=== PATIENT | female | born 1935 | race Caucasian/White ===

== ENCOUNTER 2021-11-23 09:30 | Emergency (ER) | payer MEDICARE, SELFPAY ==
[2021-11-23 10:00] VITALS: BP 159/84; PULSE 89; RESP 16; TEMP 36.9; O2SAT 99; BMI 17.6
--- NOTE | 2021-11-23 10:25 | HMH.EDUTC ---
[facility] [place] Condition on Discharge: Good <Omari Calhoun - Last Filed: 11/23/21 16:12> Condition on Discharge: Good <Altagracia Sierra - Last Filed: 11/23/21 20:38> Clinical Impression: Abdominal discomfort, Abdominal wall hernia Disposition: Home, Self-Care Instructions: DI for Ventral Hernia Prescriptions: Docusate Sodium [Colace] 100 mg PO DAILY #10 cap Prescription Printed Referrals: Provider,MD Sonja [Primary Care Provider] - Jarrod Orta MD [Staff Physician] - Medical Decision Making - Medical Records Medical records reviewed: Yes: I reviewed the patient's medical records. - CT Data CT Scan: Abdomen, Pelvis Time Received: 16:[address] Reviewed: Yes: I have reviewed the patient's CT results, I have viewed the radiologist's interpretation <Omari Calhoun - Last Filed: 11/23/21 16:12> - Butch Inquiry Pt receiving controlled substance: No Butch was queried for this patient: No <Altagracia Sierra - Last Filed: 11/23/21 20:38> Vital Signs: 11/23/21 10:00 11/23/21 10:55 11/23/21 13:15 Temperature 98.4 F 98.4 F Temperature Source Oral Oral Pulse Rate 87 Pulse Rate [Right Radial] 89 89 Respiratory Rate 16 16 Blood Pressure 169/80 H Blood Pressure [Right Arm] 159/84 H 159/84 H Blood Pressure Mean 85 Blood Pressure Mean [Right Arm] 109 109 Blood Pressure Source Blood Pressure Source [Right Arm] Automatic Cuff Automatic Cuff Blood Pressure Position Blood Pressure Position [Right Arm] Sitting Sitting 02 Sat by Pulse Oximetry 99 99 98 Oxygen Delivery Method Room Air Room Air 11/23/21 15:08 11/23/21 16:28 Temperature 98.3 F Temperature Source Pulse Rate 85 70 Pulse Rate [Right Radial] Respiratory Rate 16 16 Blood Pressure 168/90 H 140/75 Blood Pressure [Right Arm] Blood Pressure Mean Blood Pressure Mean [Right Arm] Blood Pressure Source Automatic Cuff Automatic Cuff Blood Pressure Source [Right Arm] Blood Pressure Position Sitting Sitting Blood Pressure Position [Right Arm] 02 Sat by Pulse Oximetry 95 Oxygen Delivery Method Room Air Room Air - Lab Data Lab Results 11/23/21 10:15: Urine Color Dark yellow, Urine Appearance Clear, Urine pH 5.5, Ur Specific Harrison 1.030, Urine Protein 1+, Urine Glucose (UA) Negative, Urine Ketones 15, Urine Blood 1+, Urine Nitrate Negative, Urine Bilirubin 1+ A, Urine Urobilinogen 1, Ur Leukocyte Esterase Negative 11/23/21 10:26: Urine Color Yellow, Urine Appearance Clear, Urine pH 5.5, Ur Specific Harrison >= 1.030, Urine Protein Trace, Urine Glucose (UA) Negative, Urine Ketones 1+, Urine Blood Trace-i, Urine Nitrate Negative, Urine Bilirubin Negative, Urine Urobilinogen 1.0, Ur Leukocyte Esterase Negative, Urine RBC Occasional, Urine WBC 3-5, Ur Squamous Epith Cells Occasional, Urine Bacteria 1+ Orders (Tests/Meds): ED MEDICATIONS Discontinued Medications Generic Name Dose Route Start Last Admin Trade Name Bimalq PRN Reason Stop Dose Admin Hydrocodone Bitart/Acetaminophen 1 tab 11/23/21 10:55 11/23/21 11:10 Hydrocodone/Apap 5/325 Mg Tablet PO 11/23/21 10:56 1 tab ONCE ONE Administration Diatrizoate Meglum/Diatrizoate Sod 30 ml 11/23/21 12:26 11/23/21 12:44 Diatrizoate Shelia 66% & Diatrizoate Na 10% 30ml Udc PO 11/23/21 12:27 30 ml ONCE ONE Administration ORDERS Category Date Time Status Urine Culture Stat Micro 11/23/21 10:26 Received - CT Data Findings Narrative: IMPRESSION: Left paramedian hernia containing fat only. Nonobstructing bilateral renal stones. Left sacral ala fracture, likely insufficiency fracture. Small hepatic masses likely representing cysts. If indicated liver ultrasound or post-contrast CT could further evaluate. Sclerotic areas in the left inferior and superior pubic rami likely represent old fractures. Findings worrisome for fecal impaction. (Omari Calhoun) Medical Decision Narrative: 86-year-old female presented to the emerg
[2021-11-23 10:27] LABS: Apearance,Urine Clear (Clear); Bilirubin,Urine 1+ (Negative); Blood, Urine 1+ (Negative); Color,Urine Dark Yellow (Yellow); Glucose,Urine (UA) Negative (Negative); Ketones,Urine 15 (Negative); PH,Urine 5.5 (5.0-8.5); Protein,Urine 1+ (Negative); UTC Leukocyte Esterase,Urine Negative (Negative); UTC Nitrate,Urine Negative (Negative); Urobilinogen,Urine 1 EU/dl (0.2)
[2021-11-23 10:27] LABS: Microscopic, Urine URINE MICROSCOPIC (MICROSCOPIC)
[2021-11-23 10:29] LABS: Appearance,Urine CLEAR (Clear); Bilirubin,Urine Negative (Negative); Blood, Urine TRACE-I (Negative); Color,Urine YELLOW (Yellow); Glucose,Urine (UA) Negative (Negative); Ketones,Urine 1+ (Negative); Leukocyte Esterase,Urine Negative (Negative); Nitrate,Urine Negative (Negative); PH,Urine 5.5 (5.0-8.5); Protein,Urine TRACE (Negative); Specific Gravity, Urine >= 1.030 (1.005-1.030)
--- NOTE | 2021-11-23 10:40 | PC.NURSE ---
PATIENT SENT TO ER PER Lucas WARD APRN FOR FURTHER EVALUATION. REPORT GIVEN TO Robert BOYD RN
[2021-11-23 10:44] LABS: Bacteria,Urine 1+ /lpf; RBC,Urine Occasional #/hpf (0-3); Squamous Epithelial Cell,Urine Occasional #/hpf (0-5)
[2021-11-23 10:55] VITALS: BP 159/84; PULSE 89; RESP 16; TEMP 36.9; O2SAT 99; BMI 16.9
--- NOTE | 2021-11-23 12:26 | CT_ITS ---
FINAL REPORT CLINICAL HISTORY: hernia FINDINGS: Axial CT images of the abdomen and pelvis were obtained without intravenous contrast. Oral contrast was administered. Coronal reformatted images were also obtained.This study was performed with techniques to keep radiation doses as low as reasonably achievable (ALARA). Individualized dose reduction techniques using automated exposure control or adjustment of mA and/or kV according to the patient's size were employed. Abdomen: There is moderate scarring in the lung bases. There are small pleural effusions with atelectasis. There are several less than 3 mm nonobstructing renal stones bilaterally. The gallbladder is present. There are small probable cysts in the left hepatic lobe cannot be accurately characterized without contrast. The spleen and pancreas are unremarkable. There is moderate vascular calcification. There is a left paramedian abdominal wall hernia containing fat. Hernia orifice measures 9 mm and the sac measures 14 mm transverse. No inflammatory process is identified. Pelvis: Images of the pelvis reveal no evidence of ureteral dilation or ureteral stone. There are postoperative changes of the left hip. There is a left sacral a left fracture, likely an insufficiency fracture. There are sclerotic areas in the left inferior and superior pubic rami as likely representing old fractures. There is a large amount of stool in the rectum worrisome for fecal impaction. IMPRESSION: Left paramedian hernia containing fat only. Nonobstructing bilateral renal stones. Left sacral ala fracture, likely insufficiency fracture. Small hepatic masses likely representing cysts. If indicated liver ultrasound or post-contrast CT could further evaluate. Sclerotic areas in the left inferior and superior pubic rami likely represent old fractures. Findings worrisome for fecal impaction. Reviewed, Interpreted and Dictated by Jarrod Pablo III, MD Transcribed by Freddy England Authenticated and [facility]
--- NOTE | 2021-11-23 13:06 | PC.WOUNDNOTE ---
Pt drank contrast Rad advised
[2021-11-23 13:15] VITALS: BP 169/80; PULSE 87; O2SAT 98
--- NOTE | 2021-11-23 15:04 | PC.NURSE ---
Updated son and pt on POC. Assisted patient up and she was able to ambulate to restroom. Pt ambulated back into bed and wam blankets provided. No other needs at this time.
[2021-11-23 15:08] VITALS: BP 168/90; PULSE 85; RESP 16; O2SAT 95
--- NOTE | 2021-11-23 16:04 | PC.NURSE ---
Spoke with son and let him know that we were waiting on CT results, he was going out to the lobby to charge his phone
[2021-11-23 16:28] VITALS: BP 140/75; PULSE 70; RESP 16; TEMP 36.8; O2SAT 97
== END 2021-11-23 16:29 | disposition home or self-care (01) ==
LOC: UTC 10:03 → ER 10:44
PROVIDERS: Nurse Practitioner; Emergency Provider Emergency Medicine
DX: K43.9 Ventral hernia without obstruction or gangrene (principal); M54.50 Low back pain, unspecified; R16.0 Hepatomegaly, not elsewhere classified
CPT/HCPCS: 74176; 81001; 81003; 87086; 87088; 87186; 99285

== ENCOUNTER → 2023-03-31 11:23 | Outpatient (CLI) | payer MEDICARE, SELFPAY ==
--- NOTE | 2023-03-31 11:33 | XR_ITS ---
FINAL REPORT CLINICAL HISTORY: . fall 1 week ago, lower back pain and hip pain FINDINGS: LUMBAR SPINE Five views demonstrate mild L4 compression fracture of uncertain age. There is a severe T10 compression fracture of uncertain age. Mild degenerative changes are present. There are postoperative changes in the left hip. IMPRESSION: Compression fractures of uncertain age. If indicated, MRI could further evaluate. Reviewed, Interpreted and Dictated by Jarrod Pablo III, MD Transcribed by Yolanda Kwong Authenticated and [facility]
--- NOTE | 2023-03-31 11:39 | XR_ITS ---
FINAL REPORT CLINICAL HISTORY: . fall 1 week ago, lower back pain and hip pain FINDINGS: Right hip Three views were obtained. There is no acute fracture or dislocation. The bones are osteopenic. There are moderate degenerative changes. No soft tissue abnormality is identified. IMPRESSION: Moderate degenerative changes. Reviewed, Interpreted and Dictated by Jarrod Pablo III, MD Transcribed by Yolanda Kwong Authenticated and [facility]
--- NOTE | 2023-03-31 11:40 | XR_ITS ---
FINAL REPORT CLINICAL HISTORY: RIGHT HIP INJURY, fall 1 week ago, lower back pain and hip pain FINDINGS: Right femur Two views were obtained. There is no acute fracture or dislocation. The bones are osteopenic. There are moderate degenerative changes of the right hip. No soft tissue abnormality is identified. IMPRESSION: No acute process. Reviewed, Interpreted and Dictated by Jarrod Pablo III, MD Transcribed by Yolanda Kwong Authenticated and [facility]
== END ==
PROVIDERS: PCP Family Medicine; Visit Provider Physician Assistant
DX: S79.911A Unspecified injury of right hip, initial encounter (principal); S39.92XA Unspecified injury of lower back, initial encounter; Y99.9 Unspecified external cause status
CPT/HCPCS: 72110; 73502; 73552

== ENCOUNTER → 2023-04-08 12:58 | Outpatient (CLI) | payer MEDICARE, SELFPAY ==
--- NOTE | 2023-04-08 13:04 | MR_ITS ---
FINAL REPORT CLINICAL HISTORY: F/U COMPRESSION FX. PATIENT FELL 2 WEEKS AGO. COMPARISON: None FINDINGS: Multiplanar MR imaging of the lumbar spine was performed without contrast. On the sagittal T2-weighted images, disc degeneration is seen throughout. The vertebral alignment is normal. There is a mild acute L1 superior endplate compression fracture with 20% loss of superior height. There is a moderate chronic L4 compression fracture with 60% loss of height. No bony mass is identified. The conus has an unremarkable appearance. T12-L1: Annular bulge is present. There is no significant canal stenosis or neural foraminal narrowing. L1-2: Annular disc bulge and facet arthropathy. There is no significant canal stenosis or neural foraminal narrowing. L2-3: Annular disc bulge, facet arthropathy, and osteophytes. Left foraminal disc protrusion mild right and moderate left neural foraminal narrowing. L3-4: Annular disc bulge, facet arthropathy, and osteophytes. Moderate bilateral neural foraminal narrowing. L4-5: Annular disc bulge, facet arthropathy, and osteophytes. Moderate bilateral neural foraminal narrowing L5-S1: Annular disc bulge and facet arthropathy. Mild bilateral neural foraminal narrowing. IMPRESSION: Multilevel degenerative disc disease and spondylosis as described. Mild acute L1 compression fracture and moderate chronic L4 compression fracture. Reviewed, Interpreted and Dictated by Jarrod Pablo III, MD Transcribed by Seble Herrera Authenticated and [facility]
--- NOTE | 2023-04-08 13:04 | MR_ITS ---
FINAL REPORT CLINICAL HISTORY: F/U COMPRESSION FX. PATIENT FELL 2 WEEKS AGO. COMPARISON: None FINDINGS: Multiplanar MR imaging of the thoracic spine was performed without contrast. On the sagittal T2-weighted images, disc degeneration is seen throughout. There is a severe T7 compression fracture, acute or subacute, with 70% loss of anterior height. There is a severe T10 compression fracture with 90% loss of height which appears chronic. There is moderate thoracic kyphosis. The vertebral alignment is normal. The thoracic spinal cord has an unremarkable appearance without evidence of mass, edema or syrinx. There is no evidence of significant canal stenosis or cord compression. On the axial images,disc bulges and small osteophytes are seen at multiple levels. No focal soft disc protrusion is identified. There is no evidence of significant canal stenosis or cord compression. No paraspinous soft tissue abnormality is identified. IMPRESSION: Severe acute or subacute T7 compression fracture. Severe chronic appearing T10 compression fracture. Multilevel mild degenerative disc disease and spondylosis. No focal soft disc protrusion or significant central canal stenosis. Reviewed, Interpreted and Dictated by Jarrod Pablo III, MD Transcribed by Seble Herrera Authenticated and [facility]
== END ==
PROVIDERS: PCP Family Medicine; Visit Provider Physician Assistant
DX: S32.000A Wedge compression fracture of unspecified lumbar vertebra, initial encounter for closed fracture; Y99.9 Unspecified external cause status
CPT/HCPCS: 72146; 72148; 76376

== ENCOUNTER → 2023-04-14 13:30 | Outpatient (POV) | payer MEDICARE, SELFPAY ==
--- NOTE | 2023-04-14 13:33 | EXP.PAIN.OV ---
HPI Data of Consult Patient: new to practice Consult date: 04/14/23 Requesting Physician: Edel Raygoza APRN Primary Care Provider: Whitley Underwood MD Consult Narrative Reason for consult: Lumbar and thoracic compression fractures History of present illness: Ms. Eubanks is a 88 year old female who presents today as a new patient. She is a referral from Sierra Farooq's office. Today she rates her pain an 8 out of 10. Patient states her pain is all in her low back with radiating symptoms. Patient does describe this as a constant pain that is worse with increased activities such as getting in and out of bed. She does state the pain interferes with her ability perform activities of daily living such as cooking and cleaning. Patient did have a fall approximately 3 weeks ago on March 24. Patient states that she got her legs twisted which resulted in the fall. Patient does live alone and laid on the floor due to not having any strength to stand up. Patient states at that time the pain was not as severe but got worse from that time on. Patient has tried [id number] medications such as Tylenol, ibuprofen along with ice with minimal improvement. Patient has been to the chiropractor in the past. Patient does state that when she presented for evaluation it was found that she had for compression fractures. Patient states she is interested in any help we may be able to provide. Patient does use a cane for help with ambulation. She is not on any scheduled medications. Her Butch has been reviewed. CC: Edel Raygoza APRN [facility] Disclaimer: The information contained in this section may have been updated after the patient was seen, as this information can be updated by other users. Medical History (Updated 04/14/23 @ 15:47 by Edel Raygoza APRN) Compression fracture Leg fracture Family History (Updated 04/14/23 @ 14:30 by Lorena Dang RN) Other Unknown family medical history Social History (Updated 04/14/23 @ 14:34 by Lorena Dang RN) Smoking Status: Never smoker alcohol intake: never current occupational status: retired Travel in the last 8 weeks: None Review of Systems Review of Systems Review of systems:: pertinent systems reviewed and negative unless documented below Review of systems (narrative): Review of Systems: General: No recent weight changes, no fever, no sleep disturbances Respiratory: No cough, no shortness of air, no recurring pulmonary infections Cardiovascular/peripheral vascular: No chest pain, no palpitations, no edema, no shortness of breath Gastrointestinal: No new onset incontinence, normal bowel movements reported Genitourinary: No new onset incontinence Musculoskeletal: Low back pain with pain Psychiatric: [Normal mood/affect] Neurological: [Denies weakness in extremities], [denies balance issues] Meds Home Medications and Allergies Home Medications Medication Instructions Recorded Confirmed Type latanoprost 0.005 % eye drops 1 drp ophthalmic (eye) DIRECTED 04/13/23 04/14/23 History EYES New Prescriptions to Start Prescriptions: Allergies Allergy/AdvReac Type Severity Reaction Status Date / Time No Known Allergies Allergy Verified 04/13/23 13:21 Objective Narrative: Physical Exam: General: Alert and oriented x3, no acute distress, pleasant and cooperative Lungs: Respirations even and unlabored, symmetrical chest expansion Eyes: PERRL Musculoskeletal: Flexion and extension of lumbar [spine] somewhat guarded secondary to pain, [antalgic gait noted] Neurological: Speech clear, no gross sensory deficit Additional findings Additional findings: FINDINGS: Multiplanar MR imaging of the thoracic spine was performed without contrast. On the sagittal T2-weighted images, disc degeneration is seen throughout. There is a severe T7 compression fracture, acute or subacute, with 70% loss of anterior height. There is a severe T10 compression
[2023-04-14 14:23] VITALS: BP 169/80; PULSE 89; RESP 18; O2SAT 96; BMI 17.7
== END | disposition home or self-care (01) ==
PROVIDERS: PCP Family Medicine; Visit Provider Nurse Practitioner Family
DX: M54.50 Low back pain, unspecified (principal); M51.36 Other intervertebral disc degeneration, lumbar region; M84.48XS Pathological fracture, other site, sequela
CPT/HCPCS: 99202; G0463

== ENCOUNTER → 2023-04-15 08:59 | Outpatient (CLI) | payer MEDICARE, SELFPAY ==
--- NOTE | 2023-04-15 09:15 | XR_ITS ---
FINAL REPORT TECHNIQUE: Bone densitometry calculations of the lumbar spine and left hip were obtained. CLINICAL HISTORY: POST MENOPAUSAL COMPARISON: None FINDINGS: Using L1-4, the bone mineral density of the spine is 0.799 g/cm2, corresponding to T-score of -2.3 and a Z score of 0.6. This is within the range of osteopenia. Using the right hip, the bone mineral density of the femoral neck is 0.538 g/cm2, corresponding to a T-score of -3.3 and a Z-score of -1.0. This is within the range of osteoporosis. FRAX not reported because T-score at or below-2.5. NOTE: T-score: Standard deviation compared with peak bone mass of young adult mean. *Following the recommendations of the International Society of Bone densitometry, classification of hip BMD is based on the lower of two T-scores; total hip or femoral neck. IMPRESSION: 1. Bone mineral density of the lumbar spine within the range of osteopenia. 2. Bone mineral density of the right femoral neck within the range of osteoporosis. Reviewed, Interpreted and Dictated by Kirti Ruvalcaba MD Transcribed by Seble Herrera Authenticated and [facility]
== END ==
PROVIDERS: PCP Family Medicine; Visit Provider Nurse Practitioner Family
DX: Z78.0 Asymptomatic menopausal state (principal)
CPT/HCPCS: 77080

== ENCOUNTER → 2023-04-19 10:34 | Outpatient (CLI) | payer MEDICARE, SELFPAY ==
[2023-04-19 11:01] LABS: Basophils # 0.1 K/mm3 (0-0.2); Basophils % 0.8 % (0.1-2.0); Eosinophils # 0.1 K/mm3 (0.0-0.4); Eosinophils % 0.6 % (0.1-12.0); Hematocrit 39.5 % (37.0-47.0); Hemoglobin 13.2 g/dL (12.2-16.2); Lymphocytes # 2.9 K/mm3 (0.7-4.5); Lymphocytes % 37.3 % (10-50); Mean Corpuscular HGB Conc 33.4 g/dL (31.8-35.4); Mean Corpuscular Hemoglobin 32.8 pg (27.0-31.2); Mean Corpuscular Volume 98.4 fl (81-99); Monocytes # 0.6 K/mm3 (0.1-1.0); Monocytes % 7.7 % (1.7-9.3); Neutrophils # 4.1 K/mm3 (1.8-7.8); Neutrophils % 53.5 % (37.0-80.0); Platelet Count 270 K/mm3 (142-424); Red Blood Count 4.02 M/mm3 (4.20-5.40); Red Cell Distribution Width 13.7 % (11.5-17.5); White Blood Count 7.7 K/mm3 (4.8-10.8)
[2023-04-19 12:08] LABS: Chloride 105 mmol/L (98-107); Sodium 143 mmol/L (136-145)
[2023-04-19 12:09] LABS: Potassium 4.2 mmoL/L (3.5-5.1)
[2023-04-19 12:11] LABS: Blood Urea Nitrogen 20 mg/dl (7-17); Estimated Glomerular Filt Rate 59 ml/min (>60); GFR (African American) 71 ML/MIN (>60)
[2023-04-19 12:12] LABS: Anion Gap 9.2 mEq/L (5-15); Calcium 9.2 mg/dl (8.4-10.2); Carbon Dioxide 33 mmol/L (22.0-30.0); Glucose 83 mg/dl (74-100)
== END ==
PROVIDERS: PCP Family Medicine; Visit Provider Anesthesiology
DX: Z01.818 Encounter for other preprocedural examination (principal); M80.08XA Age-related osteoporosis with current pathological fracture, vertebra(e), initial encounter for fracture
CPT/HCPCS: 36415; 80048; 85025

== ENCOUNTER 2023-04-22 07:06 | Day surgery (SDC) | payer MEDICARE, SELFPAY ==
[2023-04-19 16:40] VITALS: BMI 17.7
[2023-04-22 07:29] VITALS: BP 167/82; PULSE 94; RESP 18; TEMP 36.2; O2SAT 98
--- NOTE | 2023-04-22 07:53 | EXP.ANES.CKL ---
[facility] Disclaimer: The information contained in this section may have been updated after the patient was seen, as this information can be updated by other users. Medical History Compression fracture Leg fracture Surgical History History of left hip replacement Family History Other Unknown family medical history Social History Smoking Status: Never smoker alcohol intake: never substance use type: denies use current occupational status: retired Travel in the last 8 weeks: None [facility] Anesthesia Checklist Patient Identification Patient Identification: Arm Band, Family and Verbal (Name & ) Structural Data Admitted From: Home Planned Operative Procedure/s: L1 Kyphoplasty Consent for Planned Operative Procedure(s) Verified: Yes Verified Documents: Surgical Consent and History and Physical NPO Status Verified Time NPO: 17:30 Chart Verification Results Verified: CBC and BMP Additional verifications Patient : No Anesthesia Reactions: No Hx Blood Transfusions: Yes Blood Transfusion Reaction: No Cephalosporin Allergy: No Cardiovascular Assessment Heart Sounds: S1 & S2 Pulse Rhythm: Irregular Peripheral Edema: No Airway Assessment Mallampati Score:: Class III C-Spine Mobility Assessed: Yes (Limited extension) TMJ Mobility Assessed: Yes Dentition: Good Dentition (Nothing loose per pt.) Neurological Assessment Level of Consciousness: Awake, Alert, Appropriate and Follows Commands Hx Seizures: No Numbness or tingling in extremities: No Anesthesia Plan Anesthesia Risk discussed: Yes Anesthesia Plan: Verified ASA Class: III Anesthesia Type: MAC
[2023-04-22 10:25] VITALS: BP 148/75; PULSE 104; RESP 17; TEMP 36.3; O2SAT 100
--- NOTE | 2023-04-22 10:25 | EXP.OP.NOTE ---
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 She has 20% loss of height. She is having increasing pain. Pain all started after her fall. She is attempting to wear back brace however is not fitting well. She presents for L1 kyphoplasty today. Operative findings:: None Operative note:: Informed consent was obtained and risks and benefits of the procedure was explained to the patient. Patient was taken to the OR and was placed prone on the procedure table. The patient was prepped and draped in sterile fashion. I used 2 C arms for AP and lateral view of the L1 vertebral body. The skin and subcutaneous tissues were anesthetized using lidocaine. Bone access trochars were placed through the LEFT and RIGHT pedicle and advanced into the vertebral body. After accessing the vertebral body a balloon was inserted first on the LEFT side followed by the RIGHT side with approximately 3 mL of contrast placed in each balloon with good insufflation. After adequate spread of contrast through the balloon, the balloons were deflated and cement was introduced first on the LEFT side with placement of approximately 3-1/2 mL of cement with good spread throughout the vertebral body and then on the RIGHT side was approximately 3 1/2 mL cement with good spread throughout the vertebral body. There was no extrusion of cement through the lateral carlisle, anterior or posterior carlisle. Also no extrusion through superior or inferior carlisle. The bone access trochars were removed and dressing was placed. The patient was taken back to recovery in stable condition. She had good resolution of her back pain 5 minutes after the procedure. She tolerated the procedure well with no complications and was discharged home neurologically intact. Plan and disposition: We will follow-up with her in 2 weeks we will reevaluate symptoms at that time. Condition: stable Disposition: PACU Complications:: none
[2023-04-22 10:35] VITALS: BP 141/72; PULSE 103; RESP 16; O2SAT 97
[2023-04-22 10:45] VITALS: BP 141/68; PULSE 100; RESP 14; O2SAT 95
[2023-04-22 10:55] VITALS: BP 148/76; PULSE 90; RESP 18; O2SAT 96
[2023-04-22 11:05] VITALS: BP 126/66; PULSE 99; RESP 17; O2SAT 96
== END 2023-04-22 11:15 | disposition home or self-care (01) ==
PROVIDERS: PCP Family Medicine; Visit Provider Anesthesiology
PROC: (CPT 22514; principal; 2023-04-22 08:30)
DX: S32.010A Wedge compression fracture of first lumbar vertebra, initial encounter for closed fracture (principal)
CPT/HCPCS: 22514; 96374; J3370

== ENCOUNTER → 2023-05-12 10:16 | Outpatient (POV) | payer MEDICARE, SELFPAY ==
--- NOTE | 2023-05-12 10:31 | A.OFFVIS_ITS ---
[facility] Pain Management SOAP Note Subjective:: Patient is a pleasant 88-year-old female who presents today for kyphoplasty follow-up of L1 on 04/22/2023. We are currently treating the patient for degenerative disc disease of lumbar spine, low back pain, compression fracture of L1. Today she rates her pain a 0 out of 10. Patient denies any new injuries or trauma. She states she has done extremely well following her kyphoplasty procedure. She states that she did have some soreness for the first couple of days after this procedure however the pain did not get better as time went on and that she has no complaints at this time. Patient states she has been able to get back to her normal self overall and that her son has been installing some metal handrails to help minimize future falls. Patient does continue to use a cane for help with ambulation. Her Butch has been reviewed and is appropriate. Review of Systems: General: No recent weight changes, no fever, no sleep disturbances Respiratory: No cough, no shortness of air, no recurring pulmonary infections Cardiovascular/peripheral vascular: No chest pain, no palpitations, no edema, no shortness of breath Gastrointestinal: No new onset incontinence, normal bowel movements reported Genitourinary: No new onset incontinence Musculoskeletal: Low back pain Psychiatric: [Normal mood/affect] Neurological: [Denies weakness in extremities], [denies balance issues] Objective:: Physical Exam: General: Alert and oriented x3, no acute distress, pleasant and cooperative Lungs: Respirations even and unlabored, symmetrical chest expansion Eyes: PERRL Musculoskeletal: Flexion and extension of lumbar [spine] somewhat guarded sec ondary to pain, [antalgic gait noted] Neurological: Speech clear, no gross sensory deficit Assessment:: Degenerative disc disease of lumbar spine, low back pain, compression fracture L1, status post kyphoplasty at L1 Plan:: Patient is doing extremely well following her kyphoplasty procedure and is galvan ving no pain. I have discussed with the patient that I will follow-up with her in 2 months for reevaluation of symptoms and plan of care. Patient has been instructed to contact the clinic with any concerns before the next appointment. Dr. Latham has reviewed this note and agrees with this plan of care. This note was dictated using voice recognition software and make contain errors or omissions. [facility] Disclaimer: The information contained in this section may have been updated after the patie nt was seen, as this information can be updated by other users. Medical History Compression fracture Leg fracture Surgical History History of left hip replacement Family History Other Unknown family medical history Social History (Updated 04/22/23 @ 07:55 by Aleyda Murry CRNA) Smoking Status: Never smoker alcohol intake: never substance use type: denies use current occupational status: retired Travel in the last 8 weeks: None
[2023-05-12 10:35] VITALS: BP 182/80; PULSE 94; RESP 18; O2SAT 94; BMI 17.7
== END ==
PROVIDERS: PCP Family Medicine; Visit Provider Nurse Practitioner Family
DX: M51.36 Other intervertebral disc degeneration, lumbar region (principal); M54.50 Low back pain, unspecified
CPT/HCPCS: 99212; G0463